=== PATIENT | female | born 1955 | race Caucasian/White ===

== ENCOUNTER 2019-01-16 15:16 | Emergency (ER) | payer BC ==
[2019-01-16 15:48] VITALS: TEMP 97.6; O2SAT 98
[2019-01-16 17:08] LABS: BASO % 0.8 % (0.0-2.0); EOS # 0.1 K/uL (0.0-0.7); EOS % 1.8 % (0.0-4.0); HEMOGLOBIN 11.7 g/dL (11.0-16.0); LYMPH # 1.9 K/uL (1.0-4.3); LYMPH % 32.7 % (20.0-40.0); MEAN CORPUSCULAR HEMOGLOBIN 29.6 pg (27.0-31.0); MEAN CORPUSCULAR HGB CONC 33.7 g/dL (33.0-37.0); MEAN PLATELET VOLUME 7.9 fL (7.2-11.7); MONO # 0.3 K/uL (0.0-0.8); MONO % 5.7 % (0.0-10.0); NEUT # 3.5 K/uL (1.8-7.0); RBC 3.95 Mil/uL (3.80-5.20); RED CELL DISTRIBUTION WIDTH 13.8 % (11.5-14.5); WHITE BLOOD COUNT 5.9 K/uL (4.8-10.8)
[2019-01-16 17:15] LABS: SQUAMOUS EPITHIAL 6 /hpf (0-5); URINE BACTERIA MOD (<OCC); URINE BILIRUBIN NEGATIVE (NEGATIVE); URINE CLARITY Hazy (Clear); URINE COLOR Yellow (YELLOW); URINE GLUCOSE (UA) NORMAL (Normal); URINE LEUKOCYTE ESTERASE 3+ Leu/uL (Negative); URINE PROTEIN NEGATIVE (NEGATIVE); URINE UROBILINOGEN NORMAL mg/dL (0.2-1.0)
--- NOTE | 2019-01-16 17:23 | C.PDOC ---
History Of Present Illness 63 y/o female pt with hx of hypothyroidism presents to the ER c/o generalized weakness and right lateral thigh pain for x2 weeks. Pt reports approximately 10 days ago, she had her thyroid medication changed. Pt denies fall, trauma, n umbness, tingling, or hip pain. Pt did not take any medication for her pain. Time Seen by Provider: 01/16/19 15:59 Chief Complaint (Nursing): Lower Extremity Problem/Injury History Per: Patient History/Exam Limitations: no limitations Onset/Duration Of Symptoms: Days (x2 weeks) Current Symptoms Are (Timing): Still Present Past Medical History Reviewed: Historical Data, Nursing Documentation, Vital Signs Vital Signs: Last Vital Signs Temp 97.6 F 01/16/19 15:46 Pulse 75 01/16/19 15:46 Resp 20 01/16/19 15:46 BP 151/81 H 01/16/19 15:46 Pulse Ox 98 01/16/19 15:46 - Medical History PMH: HTN, Hypercholesterolemia, Hypothyroidism Family History: States: Unknown Family Hx - Social History Hx Tobacco Use: No Hx Alcohol Use: No Hx Substance Use: No - Immunization History Hx Tetanus Toxoid Vaccination: No Hx Influenza Vaccination: No Hx Pneumococcal Vaccination: No Review Of Systems Constitutional: Positive for: Weakness. Negative for: Other (trauma/fall) Musculoskeletal: Positive for: Other (right lateral thigh pain; no hip pain) Neurological: Negative for: Weakness, Numbness, Other (tingling) Physical Exam - Physical Exam Appears: Non-toxic, No Acute Distress, Other (older appearing female ) Skin: Warm, Dry Head: Normacephalic Eye(s): bilateral: Normal Inspection Cardiovascular: Rhythm Regular Respiratory: Normal Breath Sounds Gastrointestinal/Abdominal: Bowel Sounds (normal), Soft, No Tenderness Extremity: Normal ROM (FROM ), Tenderness (reproducible tenderness on right lateral thigh; no hip tenderness ), No Pedal Edema, No Calf Tenderness, Capillary Refill (<2 sec), No Deformity, No Swelling, No Other (redness ) Pulses: Right Femoral: Normal (+2 pulse), Right Dorsalis Pedis: Normal (+2 pulse) Neurological/Psych: Oriented x3, Normal Speech, Normal Cognition, Normal Motor, Normal Sensation ED Course And Treatment - Laboratory Results Result Diagrams: 01/16/19 17:04 01/16/19 17:04 O2 Sat by Pulse Oximetry: 98 (RA) Pulse Ox Interpretation: Normal Medical Decision Making Medical Decision Making: Plan: -- check labs and urine due to weakness and change in medication -- chem labs -- blood work -- ibuprofen -- tylenol -- hip XR Update: 1837 pt thigh pain has resolved after Tylenol. Pt was found to have an infection in the urine. Infection will be treated. Pt thyroid levels are normal and will be discharged with macrobid and f/u with PMD. Disposition Counseled Patient/Family Regarding: Studies Performed, Diagnosis, Need For Followup, Rx Given - Disposition Referrals: Wilmer Holley MD [Staff Provider] - Disposition: HOME/ ROUTINE Disposition Time: 19:05 Condition: IMPROVED Additional Instructions: Please follow up with Dr Holley in a few days. Take Tylenol for pain as prescribed. Take antibiotics until completed. Drink more water. Return to ER for any worsening symptoms. Prescriptions: Acetaminophen [Tylenol 325mg tab] 650 mg PO Q4 #50 tab Nitrofurantoin Macrocrystals [Macrobid] 100 mg PO BID #14 cap Instructions: Urinary Tract Infection, Adult (DC) Forms: [employer] (Spanish) - Clinical Impression Clinical Impression: UTI (urinary tract infection), Musculoskeletal thigh pain - PA / [employer] / Resident Statement / has reviewed & agrees with the documentation as recorded. - Scribe Statement The provider has reviewed the documentation as recorded by the Luanne Ramirez Do All medical record entries made by the Scribe were at my direction and personally dictated by me. I have reviewed the chart and agree that the record accurately reflects my personal performance of the history, physical exam, medical decision making, and the department course for this patient. I have also personally directed, reviewed, and agree with the discharge instructions and disposition.
[2019-01-16 17:24] LABS: URINE BLOOD TRACE (NEGATIVE)
[2019-01-16 17:29] LABS: ALB/GLOB RATIO 1.4 (1.0-2.1); ALBUMIN 4.3 g/dL (3.5-5.0); ALT/SGPT 40 U/L (9-52); AST/SGOT 41 U/L (14-36); BLOOD UREA NITROGEN 13 mg/dL (7-17); CALCIUM 8.8 mg/dl (8.6-10.4); GFR NON-AFRICAN AMERICAN > 60
[2019-01-16 19:15] VITALS: BP 126/75; PULSE 78; RESP 16
--- NOTE | 2019-01-17 15:02 | RAD ---
PROCEDURE: Right Hip Radiographs. HISTORY: right thigh pain COMPARISON: None. FINDINGS: BONES: Normal. No fracture. JOINTS: Normal. SOFT TISSUES: Normal. OTHER FINDINGS: None. IMPRESSION: Normal radiographs of right hip.
== END 2019-01-16 19:14 | disposition home or self-care (01) ==
LOC: C.ER 15:16
DX: N39.0 Urinary tract infection, site not specified (principal); M79.651 Pain in right thigh; I10 Essential (primary) hypertension; E78.00 Pure hypercholesterolemia, unspecified